=== PATIENT | male | born 1985 | race American Indian/Alaskan Native ===

== ENCOUNTER 2022-05-11 20:42 | Emergency (ER) | payer OTHER ==
[2022-05-11] MEDS ORDERED: Ketorolac 30 MG/ML SDV IVPUSH ONE (21:09)
== END 2022-05-11 22:35 | disposition home or self-care (01) ==
LOC: DL.ED 20:42
DX: S93.04XA Dislocation of right ankle joint, initial encounter (principal); M25.561 Pain in right knee; W01.0XXA Fall on same level from slipping, tripping and stumbling without subsequent striking against object, initial encounter
CPT/HCPCS: 73610; 96374; 99283; J1885

== ENCOUNTER 2022-09-19 15:35 | Emergency (ER) | payer MEDICAID, OTHER ==
[2022-09-19 16:15] LABS: AMPHETAMINES,URINE NEGATIVE (NEGATIVE); BARBITURATES,URINE NEGATIVE (NEGATIVE); BENZODIAZEPINE,URINE NEGATIVE (NEGATIVE); MDMA (ECSTASY), URINE NEGATIVE (NEGATIVE); METHADONE,URINE NEGATIVE (NEGATIVE); METHAMPHETAMINES,URINE NEGATIVE (NEGATIVE); OPIATES,URINE NEGATIVE (NEGATIVE); OXYCODONE,URINE NEGATIVE (NEGATIVE); PHENCYCLIDINE,URINE NEGATIVE (NEGATIVE); TCA,URINE NEGATIVE (NEGATIVE)
[2022-09-19 16:27] LABS: ANION GAP 15.2 mEq/L (7-13); CHLORIDE,CL 95 mmol/L (98-107); SODIUM,NA 133 mmol/L (136-145)
[2022-09-19 16:29] LABS: ESTIMATED GFR 98 mL/min (>=60)
[2022-09-19] MEDS ORDERED: Iopamidol 612 MG/ML 100 ML Bottle IVPUSH ONE (16:29)
[2022-09-19] MEDS ORDERED: Sodium Chloride 0.9% 1,000 ML IV ONE (16:29)
[2022-09-19 16:50] LABS: PTT,PARTIAL THROMBOPLSTIN TIME 23.2 SEC (22.0-34.0)
== END 2022-09-19 18:05 | disposition home or self-care (01) ==
LOC: DL.ED 15:35
DX: M79.81 Nontraumatic hematoma of soft tissue (principal); E11.65 Type 2 diabetes mellitus with hyperglycemia; K76.0 Fatty (change of) liver, not elsewhere classified; R35.89 Other polyuria; R63.1 Polydipsia; E87.1 Hypo-osmolality and hyponatremia; R79.89 Other specified abnormal findings of blood chemistry; Z72.0 Tobacco use
CPT/HCPCS: 36415; 74177; 80053; 80305; 81001; 82009; 82150; 82550; 82947; 83605; 83690; 83735; 85025; 85610; 85730; 96360; 99284; J7030; Q9967